=== PATIENT | female | born 1995 | race Caucasian/White ===

== ENCOUNTER 2020-01-03 23:34 | Emergency (ER) | payer SELFPAY ==
[~2020-01-03] VITALS: Ht 154.9 cm; Wt 75.3 kg
[2020-01-03 23:40] VITALS: Ht 154.9 cm; Wt 75.3 kg
[2020-01-04 01:57] VITALS: BP 116/57
== END 2020-01-04 01:57 | disposition home or self-care (01) ==
LOC: ED 23:34
DX: S00.83XA Contusion of other part of head, initial encounter (principal); S06.0X9A Concussion with loss of consciousness of unspecified duration, initial encounter; Y04.8XXA Assault by other bodily force, initial encounter; Y93.89 Activity, other specified; Y92.89 Other specified places as the place of occurrence of the external cause; Y99.8 Other external cause status

== ENCOUNTER 2020-01-11 15:08 | Emergency (ER) | payer MEDICAID ==
[~2020-01-11] VITALS: Ht 154.9 cm; Wt 73.9 kg
[2020-01-11 15:16] VITALS: Ht 154.9 cm; Wt 73.9 kg
[2020-01-11 15:53] VITALS: BP 140/88
== END 2020-01-11 15:53 | disposition home or self-care (01) ==
LOC: ED 15:08
DX: F07.81 Postconcussional syndrome (principal); S00.03XA Contusion of scalp, initial encounter; H11.32 Conjunctival hemorrhage, left eye; R11.0 Nausea; J45.909 Unspecified asthma, uncomplicated; Y04.0XXA Assault by unarmed brawl or fight, initial encounter; Y93.89 Activity, other specified; Y92.89 Other specified places as the place of occurrence of the external cause; Y99.8 Other external cause status